=== PATIENT | male | born 1925 | race Caucasian/White ===

== ENCOUNTER 2017-04-12 12:12 | Emergency (ER) | payer MEDICARE, OTHER ==
[~2017-04-12] VITALS: Ht 180.3 cm; Wt 65.0 kg
[~2017-04-12 12:12] MED LIST: CEPH-357 PO; CLOP75TA35 PO; ENAL2.5T40 PO; LEVO25TA50 PO; ZOC5T PO
[2017-04-12 14:37] LABS: HEMATOCRIT 26.8 % (42.0-52.0); HEMOGLOBIN 8.7 g/dl (14.0-17.9); MEAN CORPUSCULAR HEMOGLOBIN 24.9 PG (27.0-31.0); MEAN CORPUSCULAR HGB CONC 32.4 % (33.0-36.5); MEAN CORPUSCULAR VOLUME 76.9 FL (78-98); MEAN PLATELET VOLUME 7.1 FL (7.4-10.4); PLATELET COUNT 497 X10'3 (140-440); RED BLOOD COUNT 3.49 X10'6 (4.70-6.10); RED CELL DISTRIBUTION WIDTH 19.6 % (11.5-14.5)
[2017-04-12 14:45] LABS: INR 1.2 INR
[2017-04-12 18:10] VITALS: BP 152/68
== END 2017-04-12 18:11 | disposition home or self-care (01) ==
LOC: ER 12:13
DX: K94.21 Gastrostomy hemorrhage (principal); Z86.718 Personal history of other venous thrombosis and embolism; Z98.890 Other specified postprocedural states; Z85.840 Personal history of malignant neoplasm of eye; Z79.899 Other long term (current) drug therapy
CPT/HCPCS: 36415; 85027; 85610; 99284; A6253; A6449